=== PATIENT | male | born 1930 | race Caucasian/White ===

== ENCOUNTER 2016-09-25 13:26 | Emergency (ER) | payer OTHER, MEDICARE ==
[~2016-09-25] VITALS: Ht 170.2 cm; Wt 84.3 kg
[~2016-09-25 13:26] MED LIST: ASPIR 8181 MG PO; CRESTOR10 MG PO; LEVITRA20 MG PO; METOPROLOL SUCC25 MG PO; MIRTAZAPINE15 MG PO; NOVOLOG100 UNIT/1 SQ; PRINZIDE 20-251 EACH PO; VENLAFAXINE HC100 MG PO
[2016-09-25] MEDS ORDERED: MOTRIN600 MG PO (17:33)
[2016-09-25] MEDS ORDERED: ENDOCET 5-3251 EACH PO (17:33)
[2016-09-25 18:06] VITALS: BP 134/66
== END 2016-09-25 18:00 | disposition home or self-care (01) ==
LOC: EME 13:26
PROC: 2W38X1Z Immobilization of Right Upper Extremity using Splint (ICD-10-PCS; principal; 2016-09-25)
DX: S42.301A Unspecified fracture of shaft of humerus, right arm, initial encounter for closed fracture (principal); G56.30 Lesion of radial nerve, unspecified upper limb; W22.8XXA Striking against or struck by other objects, initial encounter; E11.9 Type 2 diabetes mellitus without complications; J44.9 Chronic obstructive pulmonary disease, unspecified; I10 Essential (primary) hypertension; Z79.01 Long term (current) use of anticoagulants; Z87.891 Personal history of nicotine dependence; Z86.711 Personal history of pulmonary embolism
CPT/HCPCS: 73060; 73070; 80053; 85025; 99281; 99285

== ENCOUNTER 2016-09-30 18:56 | Emergency (ER) | payer OTHER, MEDICARE ==
[~2016-09-30] VITALS: Ht 167.6 cm; Wt 83.8 kg
[~2016-09-30 18:56] MED LIST changes: +ENDOCET 5-3251 EACH PO; +MOTRIN600 MG PO
[2016-09-30 20:26] VITALS: BP 138/64
== END 2016-09-30 20:28 | disposition home or self-care (01) ==
LOC: EME 18:56
DX: M79.89 Other specified soft tissue disorders (principal); S50.11XA Contusion of right forearm, initial encounter; E11.9 Type 2 diabetes mellitus without complications; I10 Essential (primary) hypertension; J44.9 Chronic obstructive pulmonary disease, unspecified; Z86.711 Personal history of pulmonary embolism; Z79.01 Long term (current) use of anticoagulants; Z87.891 Personal history of nicotine dependence
CPT/HCPCS: 99281; 99284

== ENCOUNTER → 2016-10-18 | Outpatient (CLI) | payer OTHER, MEDICARE ==
[~2016-10-18] MED LIST changes: +ALL DAY ALLERGY10 M3 PO; +ASCORBIC ACID500 M3 PO; +ASPIR 8181 M1 PO; +CILOSTAZOL100 MG PO; +DIOVAN160 MG PO; +SPIRIVA18 MCG IH; +SYMBICORT60 INHALAT IH; +VENTOLIN HFA18 GM IH; +VITAMIN B12-FO1 EACH PO; +VITAMIN D400 UNIT PO
[2016-10-21 11:44] LABS: Flow Number of Markers 24 (()); Flow Spec Viability 91 % (()); Flow Specimen Type BONE MARROW (())
== END | disposition home or self-care (01) ==
LOC: JMC 14:00
PROVIDERS: Family Medicine
PROC: 07DR3ZX Extraction of Iliac Bone Marrow, Percutaneous Approach, Diagnostic (ICD-10-PCS; principal; 2016-10-18)
DX: C90.00 Multiple myeloma not having achieved remission (principal); D64.9 Anemia, unspecified
CPT/HCPCS: 38221; 85999; 88184 90; 88185 90; 88189 90; 99281; 99285

== ENCOUNTER 2017-05-05 10:44 | Inpatient (IN) | payer OTHER, MEDICARE ==
[~2017-05-05] VITALS: Ht 170.2 cm; Wt 80.4 kg
[~2017-05-05 10:44] MED LIST changes: +CALCIUM 600 +1 EA16 PO; +COUMADIN2.5 MG PO; +COUMADIN5 MG PO; +DECADRON4 MG PO; +REVLIMID15 MG PO; -VITAMIN D400 UNIT PO
[2017-05-05 11:35] LABS: HEMATOCRIT 35.9 % (38.0-50.0); HEMOGLOBIN 11.4 G/DL (12.5-16.6); MCH 26.3 PG (29.0-34.0); MCHC 31.8 G/DL (30.0-36.0); MCV 82.9 FL (86-99); PLATELET COUNT 243 K/uL (156-360); RBC DIS.WIDTH-CV 18.8 % (11.8-14.6); RBC DIS.WIDTH-SD 57.1 % (39-53); RED BLOOD COUNT 4.33 M/uL (4.00-5.50); WHITE BLOOD COUNT 6.9 K/uL (4.1-10.2)
[2017-05-05 11:47] LABS: CHLORIDE 108 mEq/L (99-109); POTASSIUM 4.1 mEq/L (3.7-5.4); SODIUM 141 mEq/L (136-147)
[2017-05-05 11:49] LABS: GLUCOSE 130 mg/dL (70-99)
[2017-05-05 11:53] LABS: CREATININE 0.8 mg/dL (0.6-1.3); GFR ESTIMATE (CALCULATED) > 59 mL/min/ (58.99-99999); UREA NITROGEN (BUN) 18 mg/dL (9-23)
[2017-05-05 11:59] LABS: TROP-I INTERPRETATION NEGATIVE
[2017-05-05 12:07] LABS: BASE EXCESS 2.5 mEq/L (-3 to +3); BICARBONATE 26.3 mEq/L (22-26); CARBOXY HGB 1.4 % (0-5); COMMENTS - BLOOD GASES NAC+; METHEMOGLOBIN 0.8 % (0-1.5); O2 FLOW 1.5 L/MIN; PCO2 37 mm Hg (35-45); PO2 57 mm Hg (80-100); SITE LR; pH 7.46 (7.35-7.45)
[2017-05-05 12:08] LABS: DEVICE CANNULA; TOTAL RESP RATE 28 resp/min
[2017-05-05] MEDS ORDERED: ZOVIRAX200 MG PO (15:56)
[2017-05-05] MEDS ORDERED: OXYCODONE HCL5 MG PO (15:56)
[2017-05-05 16:49] LABS: INTER. NORMALIZED RATIO 2.5
[2017-05-05 19:21] VITALS: BP 111/63
[2017-05-05 20:29] LABS: APPEARANCE SL.HAZY ((CLEAR)); BILIRUBIN NEGATIVE; BLOOD SMALL; COLOR YELLOW ((YELLOW)); GLUCOSE (STRIP) NEGATIVE; KETONES 5; LEUKOCYTES SMALL; NITRITE NEGATIVE; PROTEIN (STRIP) 30; SPECIFIC GRAVITY 1.053 (1.000-1.030); UROBILINOGEN 0.2 MG/DL (0.2-1.0)
[2017-05-05 20:38] LABS: BACTERIA RARE /HPF; EPITHELIAL CELLS RARE /HPF; MUCUS TRACE /LPF; UCUL ADDED? YES; WHITE BLOOD CELLS 30-40 /HPF (0-5)
[2017-05-05 23:54] VITALS: BP 106/55
[2017-05-06 04:10] VITALS: BP 98/58
[2017-05-06 06:49] LABS: HEMATOCRIT 34.1 % (38.0-50.0); HEMOGLOBIN 10.1 G/DL (12.5-16.6); MCH 24.9 PG (29.0-34.0); MCHC 29.6 G/DL (30.0-36.0); MCV 84.2 FL (86-99); PLATELET COUNT 210 K/uL (156-360); RBC DIS.WIDTH-SD 59.3 % (39-53); RED BLOOD COUNT 4.05 M/uL (4.00-5.50); WHITE BLOOD COUNT 8.5 K/uL (4.1-10.2)
[2017-05-06 06:51] LABS: INTER. NORMALIZED RATIO 2.6
[2017-05-06 07:09] LABS: CHLORIDE 109 MEQ/L (99-109); CREATININE 0.7 MG/DL (0.6-1.3); GFR ESTIMATE (CALCULATED) > 59 mL/min/ (58.99-99999); GLUCOSE 125 mg/dL (70-99); POTASSIUM 3.7 MEQ/L (3.7-5.4); SODIUM 144 MEQ/L (136-147); UREA NITROGEN (BUN) 18 mg/dL (9-23)
[2017-05-06 07:12] LABS: ABS NEUTROPHIL COUNT 8.1; ANISOCYTOSIS 1+; EOSINOPHIL ABS CT 0; LYMPHOCYTES 3.5 % (15.0-45.0); MICROCYTOSIS 1+; MONOCYTES 1.7 % (0-9.0); OVALOCYTES 3+; PLAT.SUFFICIENCY ADEQUATE; POIKILOCYTOSIS 3+; SEG.NEUTROPHILS 74.8 % (46.0-76.0)
[2017-05-06 07:38] VITALS: BP 133/71
[2017-05-06 11:57] VITALS: BP 131/61
[2017-05-06 15:33] VITALS: BP 111/61
[2017-05-06 19:44] VITALS: BP 132/60
[2017-05-06 23:34] VITALS: BP 125/58
[2017-05-07 03:31] VITALS: BP 114/57
[2017-05-07 06:07] LABS: BASOPHIL (%) 0.3 % (0-1); EOSINOPHIL (%) 0.3 % (0-5); HEMATOCRIT 30.1 % (38.0-50.0); HEMOGLOBIN 9.1 G/DL (12.5-16.6); IMMATURE GRANULOCYTE (%) 0.6 % (0.0-0.7); LYMPHOCYTE (%) 6.3 % (15-42); LYMPHOCYTE COUNT 0.4 K/uL (1.0-2.8); MCH 25.3 PG (29.0-34.0); MCHC 30.2 G/DL (30.0-36.0); MCV 83.6 FL (86-99); MONOCYTE (%) 5.2 % (3-12); MONOCYTE COUNT 0.3 K/uL (0-0.8); NEUTROPHIL (%) 87.3 % (45-76); NEUTROPHIL COUNT 5.5 K/uL (1.8-6.4); PLATELET COUNT 196 K/uL (156-360); RBC DIS.WIDTH-SD 58.6 % (39-53); WHITE BLOOD COUNT 6.3 K/uL (4.1-10.2)
[2017-05-07 06:26] LABS: INTER. NORMALIZED RATIO 2.2
[2017-05-07 06:39] LABS: CHLORIDE 109 MEQ/L (99-109); CREATININE 0.7 MG/DL (0.6-1.3); GFR ESTIMATE (CALCULATED) > 59 mL/min/ (58.99-99999); GLUCOSE 126 mg/dL (70-99); HDL CHOLESTEROL 60 MG/DL (Desirable>=40); LDL CHOLESTEROL 39 mg/dL (Desirable<100); NON-HDL CHOLESTEROL 48 mg/dL (Desirable<160); POTASSIUM 3.1 MEQ/L (3.7-5.4); SODIUM 140 MEQ/L (136-147); TOTAL CHOLESTEROL 108 mg/dL (Desirable<200); TRIGLYCERIDES 44 MG/DL (Normal: <150); UREA NITROGEN (BUN) 18 mg/dL (9-23)
[2017-05-07 08:04] VITALS: BP 138/62
[2017-05-07 11:39] VITALS: BP 129/69
[2017-05-07 16:11] VITALS: BP 117/55
[2017-05-07 19:11] VITALS: BP 121/75
[2017-05-07 23:34] VITALS: BP 120/59
[2017-05-08 03:43] VITALS: BP 143/68
[2017-05-08 05:54] LABS: BASOPHIL (%) 0 % (0-1); EOSINOPHIL (%) 0 % (0-5); HEMATOCRIT 29.8 % (38.0-50.0); IMMATURE GRANULOCYTE (%) 0.5 % (0.0-0.7); LYMPHOCYTE (%) 6.8 % (15-42); LYMPHOCYTE COUNT 0.3 K/uL (1.0-2.8); MCH 25.1 PG (29.0-34.0); MCHC 30.2 G/DL (30.0-36.0); MCV 83.2 FL (86-99); MONOCYTE (%) 3.9 % (3-12); MONOCYTE COUNT 0.2 K/uL (0-0.8); NEUTROPHIL (%) 88.8 % (45-76); NEUTROPHIL COUNT 3.4 K/uL (1.8-6.4); PLATELET COUNT 184 K/uL (156-360); RBC DIS.WIDTH-CV 18.8 % (11.8-14.6); RBC DIS.WIDTH-SD 58.1 % (39-53); RED BLOOD COUNT 3.58 M/uL (4.00-5.50); WHITE BLOOD COUNT 3.8 K/uL (4.1-10.2)
[2017-05-08 06:17] LABS: CREATININE 0.6 MG/DL (0.6-1.3); GFR ESTIMATE (CALCULATED) > 59 mL/min/ (58.99-99999); GLUCOSE 158 mg/dL (70-99); UREA NITROGEN (BUN) 15 mg/dL (9-23)
[2017-05-08 06:20] LABS: CHLORIDE 113 MEQ/L (99-109); POTASSIUM 3.6 MEQ/L (3.7-5.4); SODIUM 144 MEQ/L (136-147)
[2017-05-08 06:47] LABS: INTER. NORMALIZED RATIO 2.3
[2017-05-08 06:54] VITALS: BP 158/75
[2017-05-08 11:09] VITALS: BP 138/68
[2017-05-08 15:05] VITALS: BP 160/74
[2017-05-08 19:02] VITALS: BP 148/67
[2017-05-08 22:56] VITALS: BP 130/64
[2017-05-09 04:01] VITALS: BP 140/80
[2017-05-09 06:26] LABS: CHLORIDE 113 MEQ/L (99-109); CREATININE 0.8 MG/DL (0.6-1.3); GFR ESTIMATE (CALCULATED) > 59 mL/min/ (58.99-99999); GLUCOSE 153 mg/dL (70-99); SODIUM 145 MEQ/L (136-147); UREA NITROGEN (BUN) 20 mg/dL (9-23)
[2017-05-09 06:39] LABS: BASOPHIL (%) 0.2 % (0-1); EOSINOPHIL (%) 0 % (0-5); HEMATOCRIT 32.1 % (38.0-50.0); HEMOGLOBIN 9.8 G/DL (12.5-16.6); IMMATURE GRANULOCYTE (%) 0.6 % (0.0-0.7); LYMPHOCYTE COUNT 0.5 K/uL (1.0-2.8); MCH 25.4 PG (29.0-34.0); MCHC 30.5 G/DL (30.0-36.0); MCV 83.2 FL (86-99); MONOCYTE (%) 6.6 % (3-12); MONOCYTE COUNT 0.3 K/uL (0-0.8); NEUTROPHIL (%) 82.6 % (45-76); PLATELET COUNT 197 K/uL (156-360); RBC DIS.WIDTH-CV 18.8 % (11.8-14.6); RBC DIS.WIDTH-SD 57.1 % (39-53); RED BLOOD COUNT 3.86 M/uL (4.00-5.50); WHITE BLOOD COUNT 4.8 K/uL (4.1-10.2)
[2017-05-09 07:58] VITALS: BP 164/80
[2017-05-09] MEDS ORDERED: MEDROL DOSEPAK4 MG PO (11:42)
[2017-05-09] MEDS ORDERED: PREDNISONE20 MG PO (11:42)
[2017-05-09] MEDS ORDERED: LEVAQUIN750 MG PO (11:43)
[2017-05-09 11:47] VITALS: BP 157/76
[2017-05-09] MEDS ORDERED: COUMADIN2.5 MG PO ×2 (13:20→13:24)
[2017-05-09 16:23] VITALS: BP 166/96
== END 2017-05-09 16:13 | disposition home health service (06) | DRG 871 ==
LOC: EME 10:44 → EDOF 14:33 → 5EAST 14:33 → ENRESERV 14:37 → 5EAST 17:04
PROVIDERS: Emergency Medicine; Internal Medicine
DX: A41.9 Sepsis, unspecified organism (principal); J96.01 Acute respiratory failure with hypoxia; J18.9 Pneumonia, unspecified organism; R65.20 Severe sepsis without septic shock; J44.0 Chronic obstructive pulmonary disease with (acute) lower respiratory infection; J44.1 Chronic obstructive pulmonary disease with (acute) exacerbation; I95.9 Hypotension, unspecified; C90.00 Multiple myeloma not having achieved remission; I48.0 Paroxysmal atrial fibrillation; I71.2 Thoracic aortic aneurysm, without rupture; E87.6 Hypokalemia; I70.213 Atherosclerosis of native arteries of extremities with intermittent claudication, bilateral legs; I72.4 Aneurysm of artery of lower extremity; E11.9 Type 2 diabetes mellitus without complications; I10 Essential (primary) hypertension; D64.81 Anemia due to antineoplastic chemotherapy; T45.1X5A Adverse effect of antineoplastic and immunosuppressive drugs, initial encounter; C61 Malignant neoplasm of prostate; R29.6 Repeated falls; Y95 Nosocomial condition; Z79.01 Long term (current) use of anticoagulants; Z86.711 Personal history of pulmonary embolism; Z86.718 Personal history of other venous thrombosis and embolism; Z87.891 Personal history of nicotine dependence; Z88.0 Allergy status to penicillin
CPT/HCPCS: 36415; 36600; 70450; 71046; 71275; 75635; 80048; 80053; 80061; 80202; 81003; 82784; 82803; 83605; 83615; 83883 90; 84165; 84484; 85025; 85027; 85610; 86140; 86334; 87040; 87070; 87086; 87205; 87449; 87502; 87641; 93005; 93926; 93970; 94010; 94640; 94640 76; 94799; 97530 GP; 99202; 99281; 99285; J0692; J1956; J3370; J7030; J7512

== ENCOUNTER 2017-06-20 06:29 | Day surgery (SDC) | payer OTHER, MEDICARE ==
[~2017-06-20] VITALS: Ht 170.2 cm; Wt 73.0 kg
[~2017-06-20 06:29] MED LIST changes: +CYANOCOBALAM1000 MCG PO; +LEVAQUIN750 MG PO; +MEDROL DOSEPAK4 MG PO; +OXYCODONE HCL5 MG PO; +OXYCODONE-ACET1 EACH PO; +PREDNISONE20 MG PO; +SPIRIVA1 INHALATI IH; -SPIRIVA18 MCG IH; +WARFARIN SODIUM10 MG PO; +WARFARIN SODIUM5 MG PO; +ZOVIRAX200 MG PO
== END 2017-06-20 11:13 | disposition home or self-care (01) ==
LOC: CATH 06:29
DX: I72.4 Aneurysm of artery of lower extremity (principal); Z87.891 Personal history of nicotine dependence; J43.9 Emphysema, unspecified; Z85.46 Personal history of malignant neoplasm of prostate; I70.212 Atherosclerosis of native arteries of extremities with intermittent claudication, left leg; Z79.01 Long term (current) use of anticoagulants
CPT/HCPCS: C1725; C1769; C1874; C1894; J1644; J2250; J3010; S0020